=== PATIENT | male | born 1970 | race Caucasian/White ===

== ENCOUNTER 2020-03-10 18:00 | Emergency (ER) | payer OTHER ==
[2020-03-10 18:05] VITALS: BP 134/92; PULSE 92; RESP 18; TEMP 98.9
[2020-03-10] MEDS ORDERED: LIDOCAINE 1% INJ 10MG/ML (20 ML MDV) SQ ONE (18:32)
[2020-03-10] MEDS ORDERED: DIPH,PERTUS(ACELL)TETVAC-LF 0.5 ML VIAL IM ONE (18:32)
--- NOTE | 2020-03-10 18:58 | ED ---
Upper Extremity HPI - General Chief Complaint: Extremity Injury, Upper Stated Complaint: [facility] - fingers crushed Time Seen by Provider: 03/10/20 18:25 Source: patient Mode of arrival: ambulatory Limitations: no limitations - History of Present Illness Initial Comments: Patient is a 49-year-old male presenting to the emergency Department with complaints of a crush injury to his right fifth digit. Patient states she was at work and his fifth digit became crushed in a machine. Patient states he is able to move the finger, he does have a laceration to the finger as well. He states he does not remember his last tetanus vaccine. He denies being on a blood thinner. Bleeding is controlled at this time. He denies any previous injuries to that right hand. He denies any further complaints at this time. - Related Data Home Medications Medication Instructions Recorded Confirmed Sertraline [Zoloft] 25 mg PO HS 05/23/16 05/23/16 Simvastatin [Zocor] 20 mg PO HS 05/23/16 05/23/16 Allergies Allergy/AdvReac Type Severity Reaction Status Date / Time Penicillins Allergy Unknown Verified 03/10/20 18:05 Review of Systems ROS Statement: Those systems with pertinent positive or pertinent negative responses have been documented in the HPI. ROS Other: All systems not noted in ROS Statement are negative. Past Medical History Past Medical History: Hyperlipidemia History of Any Multi-Drug Resistant Organisms: None Reported Past Surgical History: Hernia Repair, Orthopedic Surgery Past Psychological History: Depression Smoking Status: Current every day smoker Past Alcohol Use History: Daily Past Drug Use History: Marijuana General Exam - General Exam Comments Initial Comments: GENERAL: Patient is well-developed and well-nourished. Patient is nontoxic and in no acute distress. HEAD: Atraumatic, normocephalic. EYES: Pupils equal round and reactive to light, extraocular movements intact, sclera anicteric, conjunctiva are normal. Eyelids were unremarkable. ENT: Nares patent, oropharynx clear without exudates. Moist mucous membranes. NECK: Normal range of motion, supple without lymphadenopathy or JVD. LUNGS: Unlabored respirations. Breath sounds clear to auscultation bilaterally and equal. No wheezes rales or rhonchi. HEART: Regular rate and rhythm without murmurs, rubs or gallops. ABDOMEN: Soft, nontender, normoactive bowel sounds. No guarding, no rebound. No masses appreciated. : Deferred MUSCULOSKELETAL: Patient does have full range of motion of his right fifth digit. Normal extremities with adequate strength and normal range of motion, no pitting or edema. No clubbing or cyanosis. NEUROLOGICAL: Patient is alert and oriented x 3. Motor and sensory are also intact. Cranial nerves II through XII grossly intact. Normal speech, normal gait. Symmetrical smile. PSYCH: Normal mood, normal affect. SKIN: Warm, Dry, normal turgor, no rashes. Patient has a 1 cm laceration to the inside portion of the right fifth digit near the DIP joint. No active bleeding. . Limitations: no limitations Course Vital Signs 03/10/20 18:02 Temperature 98.9 F Pulse Rate 92 Respiratory 18 Rate Blood Pressure 134/92 O2 Sat by Pulse 97 Oximetry Procedures - Laceration Laceration #1 Consent Obtained: verbal consent Indication: laceration Site: hand (Right fifth digit, inner aspect) Size (cm): 1 Description: linear Depth: simple, single layer Anesthetic Used: lidocaine 1% Anesthesia Technique: local infiltration Amount (mls): 2 Pre-repair: irrigated extensively Type of Sutures: nylon Size of Sutures: 5-0 Number of Sutures: 2 Technique: simple, interrupted Patient Tolerated Procedure: well Medical Decision Making - Medical Decision Making Patient is a 41-year-old male here for an injury to his right fifth digit as well as a 1 cm laceration inside portion of the digit, near DIP joint. Patient's tetanus vaccine was updated today. Patient's x-rays reveal no acute fractures or dislocations. Patient's wound was cleaned, closed with 2, 5-0 sutures. Patient tolerated procedure well. He is stable for discharge. He will have sutures removed in 7-10 days. He will keep area clean and dry and he is in agreement with this plan of care. Dr. Sanchez. Disposition Clinical Impression: Laceration of right little finger Disposition: HOME SELF-CARE Condition: Stable Instructions (If sedation given, give patient instructions): Care For Your Stitches (ED) Additional Instructions: Please return to the Emergency Department if symptoms worsen or any other concerns. Stitches need to be removed in 7-10 days. Keep area clean and dry. Is patient prescribed a controlled substance at d/c from ED?: No Referrals: Rocky Flores MD [Primary Care Provider] - 1-2 days
--- NOTE | 2020-03-10 20:09 | XR ---
EXAMINATION TYPE: XR hand limited RT DATE OF EXAM: 03/10/2020 CLINICAL HISTORY: Laceration to fifth digit TECHNIQUE: Frontal and lateral images of the right hand , and coned-down lateral view of the fifth di git obtained. COMPARISON: None. FINDINGS: There is no acute fracture/dislocation evident in the right hand. The joint spaces in the right hand appear within normal limits. The overlying soft tissue appears unremarkable. No radiopaqu e foreign body. IMPRESSION: No acute osseous abnormality or radiopaque foreign body of the right hand.
== END 2020-03-10 20:11 | disposition home or self-care (01) ==
LOC: EC 18:00
DX: S61.216A Laceration without foreign body of right little finger without damage to nail, initial encounter (principal); Z23 Encounter for immunization; F32.9 Major depressive disorder, single episode, unspecified; E78.5 Hyperlipidemia, unspecified; F17.200 Nicotine dependence, unspecified, uncomplicated; Z79.899 Other long term (current) drug therapy; Z88.0 Allergy status to penicillin; W23.0XXA Caught, crushed, jammed, or pinched between moving objects, initial encounter
CPT/HCPCS: 73120; 90715; 99283; 12001; 90471; J2001